=== PATIENT | male | born 1960 | race Caucasian/White ===

== ENCOUNTER 2017-09-25 13:43 | Observation (INO) ==
[2017-09-25] MEDS ORDERED: HYDROmorphone 2 MG/1 ML VIAL IV STA (14:35)
[2017-09-25] MEDS ORDERED: ONDANSETRON 4 MG/2 ML VIAL IV ONE (14:35)
[2017-09-25] MEDS ORDERED: BACITRACIN OINT 0.9 GM PACK TOP ONE ×2 (15:18→17:20)
[2017-09-25] MEDS ORDERED: BUPIVACAINE 0.5% 50 ML VIAL ONE ×2 (15:18→17:20)
[2017-09-25] MEDS ORDERED: ceFAZolin 1,000 MG in SYRINGE 1 EACH IV ONE (17:19)
[2017-09-25] MEDS ORDERED: ceFAZolin 1,000 MG VIAL ONE (17:20)
[2017-09-25] MEDS ORDERED: MORPHINE 4 MG/1 ML VIAL IV PRN ×7 (17:24→20:54)
[2017-09-25] MEDS ORDERED: KETOROLAC 30 MG/1 ML VIAL IV PRN ×4 (17:24→20:54)
[2017-09-25] MEDS ORDERED: MAGNESIUM HYDROXIDE SUSP 30 ML UDCUP PO PRN ×4 (17:24→20:54)
[2017-09-25] MEDS ORDERED: ACETAMINOPHEN 325 MG TABLET PO PRN ×4 (17:24→20:54)
[2017-09-25] MEDS ORDERED: PROPOFOL 200 MG/20 ML VIAL IV ONE (19:25)
[2017-09-25] MEDS ORDERED: ACETAMINOPHEN 1,000 MG/100 ML VIAL IV ONE (19:26)
[2017-09-25] MEDS ORDERED: MIDAZOLAM 2 MG/2 ML VIAL ONE (19:26)
[2017-09-25] MEDS ORDERED: SEVOFLURANE 1 UNIT/15 MINUTE INH ONE (19:26)
[2017-09-25] MEDS ORDERED: KETOROLAC 30 MG/1 ML VIAL ONE (19:26)
[2017-09-25] MEDS ORDERED: fentaNYL 100 MCG/2 ML VIAL ONE (19:26)
[2017-09-25] MEDS ORDERED: ONDANSETRON 4 MG/2 ML VIAL ONE (19:26)
[2017-09-25] MEDS ORDERED: SUCCINYLCHOLINE 200 MG/10 ML VIAL ONE (19:26)
[2017-09-25] MEDS ORDERED: ROCURONIUM 100 MG/10 ML VIAL IV ONE (19:27)
[2017-09-25] MEDS ORDERED: LACTATED RINGERS 1,000 ML IV ONE (19:27)
[2017-09-26] MEDS ORDERED: ceFAZolin 2,000 MG in PREMIX 1 EACH IV SCH ×3 (02:25)
[2017-09-26] MEDS: ceFAZolin 2,000 MG in PREMIX 1 EACH IV SCH ×2 (02:25→10:35)
[2017-09-26 05:53] LABS: Basophils % 0.3 % (0.0-0.8); Eosinophils # 0.1 10*3/uL (0.0-0.87); Eosinophils % 1.1 % (0.00-10.9); Hematocrit 36.1 VOL% (42.0-52.0); Hemoglobin 12.6 GM/DL (14.0-18.0); Immature Granulocytes % 0.1 %; Immature Granulocytes Absolute 0.01 #; Lymphocytes # 1.9 10*3/uL (1.4-4.0); Lymphocytes % 23.8 % (21.2-54.2); Mean Corpuscular HGB Conc 34.9 GM/DL (32-36); Mean Corpuscular Hemoglobin 32 PG (27-34); Mean Corpuscular Volume 90.3 FL (87-102); Mean Platelet Volume 9.2 FL (9.6-12.0); Monocytes # 0.5 10*3/uL (0.11-0.8); Monocytes % 6.3 % (1.7-12.7); Neutrophils # 5.5 10*3/uL (1.4-7.4); Neutrophils % 68.4 % (38.7-73.9); Platelet Count 195 T/CUMM (130-400); Red Cell Distribution Width 12.6 % (9.3-17.3)
[2017-09-26 06:13] LABS: Albumin 3.4 G/DL (3.4-5.0); Bilirubin,Total 0.5 MG/DL (0.2-1.0); Calcium 7.9 MG/DL (8.5-10.1); Osmolality,Calculated 283.1 MOS/KG (273-304); Potassium 3.6 MMOL/L (3.5-5.1); Total Protein 5.8 G/DL (6.4-8.3)
[2017-09-26] MEDS: MORPHINE 4 MG/1 ML VIAL IV PRN ×2 (09:28→13:36)
[2017-09-26 14:05] VITALS: BP 172/91
== END 2017-09-26 14:07 | disposition home or self-care (01) ==
LOC: N.ED 13:43 → N.4E 17:00 → N.ED 17:08 → N.4E 20:55 → INTOOBSV 20:55
PROVIDERS: ADMIT Orthopaedic Surgery; ATTEND Orthopaedic Surgery